=== PATIENT | male | born 1975 | race Caucasian/White ===

== ENCOUNTER 2018-06-28 12:31 | Emergency (ER) | payer OTHER ==
[~2018-06-28] VITALS: Ht 185.4 cm; Wt 104.3 kg
[2018-06-28 12:40] VITALS: BP_SYST 134
[2018-06-28] MEDS ORDERED: KETOROLAC TROMETHAMINE 60 MG/2 ML VIAL IM ONE (13:30)
[2018-06-28 14:00] VITALS: BP_SYST 130
== END 2018-06-28 14:00 | disposition home or self-care (01) ==
LOC: SED 12:31
DX: M25.562 Pain in left knee (principal); I10 Essential (primary) hypertension; W10.9XXA Fall (on) (from) unspecified stairs and steps, initial encounter; Y93.89 Activity, other specified; Y92.89 Other specified places as the place of occurrence of the external cause; Y99.8 Other external cause status
CPT/HCPCS: 29505; 73564; 96372; 99283; J1885

== ENCOUNTER 2023-09-03 12:29 | Inpatient (IN) | payer MEDICAID, OTHER ==
[~2023-09-03] VITALS: Ht 188 cm; Wt 122.9 kg
[~2023-09-03 12:29] MED LIST: DEXT15TA PO; TEST200V32 IM; TRAZ-250 PO
[2023-09-03 12:30] VITALS: BP_SYST 160; PULSE 85; RESP 18; TEMP 98.1; O2SAT 95
[2023-09-03] MEDS ORDERED: iohexoL 350 mgI/mL, 100 ML INFUS..BTL IV ONE (12:41)
[2023-09-03 13:26] LABS: CALCIUM 9.2 mg/dL (8.4-11.0); CREATININE 1.17 mg/dL (0.55-1.30); POTASSIUM 3.8 mmol/L (3.5-5.1)
[2023-09-03 13:28] LABS: BASOPHILS % (AUTO) 0.3 % (0.0-2.0); HEMATOCRIT 47.5 % (36-54); HEMOGLOBIN 16.5 g/dL (14.0-18.0); LYMPHOCYTES % (AUTO) 41.9 % (20.5-51.5); MEAN CORPUSCULAR HEMOGLOBIN 31 pg (27-31); MEAN CORPUSCULAR HGB CONC 35 % (32-36); MEAN CORPUSCULAR VOLUME 89 fL (79.0-98.0); MONOCYTES # (AUTO) 0.5 K/uL (0.0-1.0); MONOCYTES % (AUTO) 10.6 % (1.7-9.3); NEUTROPHILS # (AUTO) 2.2 K/uL (1.8-7.7); NEUTROPHILS % (AUTO) 46.2 % (40.0-70.0); PLATELET COUNT (AUTO) 232 K/uL (130-430); RED BLOOD CELL COUNT(AUTO) 5.37 MIL/uL (4.2-6.2); RED CELL DISTRIBUTION WIDTH 14.3 % (9.0-15.0); WHITE BLOOD COUNT (AUTO) 4.7 K/uL (4.8-10.8)
[2023-09-03 13:33] LABS: INR 1.1 (0.80-1.20)
[2023-09-03] MEDS: NACL 0.9% 1,000 ML IV ONE (16:37)
[2023-09-03 16:47] LABS: THYROID STIMULATING HORMONE 2.77 uIu/mL (0.34-4.82)
[2023-09-03] MEDS: ASPIRIN 81 MG TABLET(ECOTRIN) PO ONE (16:52)
[2023-09-03] MEDS: METOPROLOL TARTRATE 25 MG TABLET PO ONE (16:52)
[2023-09-03 17:26] LABS: BILIRUBIN,URINE NEGATIVE (NEGATIVE); BLOOD, URINE NEGATIVE (NEGATIVE); CLARITY/URINE CLEAR (CLEAR); COLOR,URINE YELLOW (YELLOW); GLUCOSE,URINE NEGATIVE (NEGATIVE); KETONES,URINE NEGATIVE (NEGATIVE); LEUKOCYTE ESTERASE ,URINE NEGATIVE (NEGATIVE); NITRITE, URINE NEGATIVE (NEGATIVE); PH,URINE 6.5 (5.0-8.0); PROTEIN URINE NEGATIVE (NEGATIVE); UROBILINOGEN,URINE 0.2 (0.2-1.0)
[2023-09-03 17:48] LABS: BARBITURATE, URINE NEGATIVE (NEG <=200); BENZODIAZEPINE, URINE NEGATIVE (NEG <=150); CANNABINOID, URINE NEGATIVE (NEG <=50); COCAINE, URINE NEGATIVE (NEG <=150); METHAMPHETAMINES SCREEN,URINE NEGATIVE (NEG <=500); OPIATE, URINE NEGATIVE (NEG <=100); PHENCYCLIDINE SCREEN,URINE NEGATIVE (NEG <=25); URINE AMPHETAMINE POSITIVE (NEG <=500); URINE METHADONE NEGATIVE (NEG <=200); URINE OXYCODONE SCREEN NEGATIVE (NEG <=100)
[2023-09-03 17:49] LABS: UR TRICYCLIC ANTIDEPRESSANTS NEGATIVE (NEG <=300)
[2023-09-03 21:30] VITALS: BP_SYST 126; PULSE 72; RESP 18; TEMP 97.5; O2SAT 96
[2023-09-03] MEDS: METOPROLOL TARTRATE 25 MG TABLET PO SCH (23:17)
[2023-09-04] VITALS: BP_SYST 125; PULSE 72; RESP 18; TEMP 97.7; O2SAT 97
[2023-09-04 04:00] VITALS: BP_SYST 126; PULSE 74; RESP 18; TEMP 97.8; O2SAT 97
[2023-09-04 08:00] VITALS: BP_SYST 126; PULSE 68; RESP 18; TEMP 96.8; O2SAT 94
[2023-09-04 09:15] LABS: CHOLESTEROL 175 mg/dL (<200); HDL CHOLESTEROL 52 mg/dL (>45); TRIGLYCERIDES 125 mg/dL (30-150)
[2023-09-04] MEDS: ASPIRIN 81 MG TABLET(ECOTRIN) PO SCH (10:05)
[2023-09-04] MEDS ORDERED: MULT-976 PO (11:23)
[2023-09-04 12:00] VITALS: BP_SYST 145; PULSE 88; RESP 18; TEMP 98.9; O2SAT 99
[2023-09-04 16:00] VITALS: BP_SYST 138; PULSE 88; RESP 18; TEMP 98.2; O2SAT 86
[2023-09-04 17:03] VITALS: BP_SYST 132; PULSE 94; RESP 18; TEMP 98.6; O2SAT 96
== END 2023-09-04 17:50 | disposition home or self-care (01) | DRG 48 ==
LOC: SED 12:29 → SMU 15:48
PROVIDERS: ADMIT General Practice; ATTEND General Practice
DX: G90.9 Disorder of the autonomic nervous system, unspecified (principal); G92.8 Other toxic encephalopathy; E66.9 Obesity, unspecified; F15.90 Other stimulant use, unspecified, uncomplicated; F90.9 Attention-deficit hyperactivity disorder, unspecified type; G47.30 Sleep apnea, unspecified; Z68.34 Body mass index [BMI] 34.0-34.9, adult; Z79.899 Other long term (current) drug therapy; T50.915A Adverse effect of multiple unspecified drugs, medicaments and biological substances, initial encounter
CPT/HCPCS: 36415; 70450; 70496; 70498; 71045; 80048; 80061; 80307; 81001; 81003; 84443; 85025; 85610; 85730; 93005; 96360; 96361; 99291; Q9967